=== PATIENT | male | born 1960 | race Caucasian/White ===

== ENCOUNTER 2017-10-21 12:32 | Observation (INO) | payer BC ==
[2017-10-21] MEDS: BELLADONNA/PHENOBARBITAL TAB PO (13:33)
[2017-10-21] MEDS: ONDANSETRON 4 MG INJ IV ×3 (13:33→16:40)
[2017-10-21] MEDS: FAMOTIDINE 20 MG INJ IV (13:33)
[2017-10-21] MEDS: SOD CHLORIDE 0.9% 1,000 ML IV ×3 (13:33→20:51)
[2017-10-21] MEDS: HYDROmorphONE 0.5 MG/0.5 ML SYG IV ×3 (13:33→16:41)
[2017-10-21] MEDS: LIDOCAINE/MYLANTA 40 ML BTL PO (13:33)
[2017-10-21] MEDS: KETOROLAC 30 MG INJ IV (13:43)
[2017-10-21] MEDS: LORAZEPAM 2 MG INJ IV (14:09)
[2017-10-21 15:12] LABS: ADD MAN DIFF? NO
[2017-10-21 15:13] LABS: WHITE BLOOD COUNT 18.7 10^3/ul (4.8-10.8)
[2017-10-21 15:13] LABS: BASOPHIL # 0.1 10^3/ul (0.0-0.1); BASOPHILS % 0.5 % (0.0-2.0); EOSINOPHILS # 0.2 10^3/ul (0.0-0.5); EOSINOPHILS % 1.2 % (0.0-7.0); HEMATOCRIT 50.1 % (42.0-52.0); HEMOGLOBIN 16.7 g/dl (14.0-18.0); LYMPHOCYTES # 2.3 10^3/ul (0.8-2.9); LYMPHOCYTES % 12.5 % (15.0-51.0); MEAN CORPUSCULAR HEMOGLOBIN 30.5 pg (29.0-33.0); MEAN CORPUSCULAR HGB CONC 33.3 g/dl (32.0-37.0); MEAN CORPUSCULAR VOLUME 91.6 fl (82.0-101.0); MEAN PLATELET VOLUME 11.8 fl (7.4-10.4); MONOCYTE # 1.2 10^3/ul (0.3-0.9); MONOCYTES % 6.2 % (0.0-11.0); NEUTROPHIL # 14.8 10^3/ul (1.6-7.5); NEUTROPHILS % 79.2 % (39.0-77.0); PLATELET COUNT 292 10^3/UL (140-415); RED BLOOD COUNT 5.47 10^6/ul (4.70-6.10); RED CELL DISTRIBUTION WIDTH 13.1 % (11.5-14.5)
[2017-10-21 15:18] LABS: INR 0.87; PARTIAL THROMBOPLASTIN TIME 28.4 Sec (25.0-35.0); PROTIME 11.9 Sec (11.9-14.9); PT RATIO 0.9
[2017-10-21 15:21] LABS: ALANINE AMINOTRANSFERASE 21 IU/L (13-69); ALBUMIN/GLOBULIN RATIO 1.61; ALKALINE PHOSPHATASE 120 IU/L (42-121); AMYLASE 101 U/L (11-123); ANION GAP 18 (8-16); ASPARTATE AMINO TRANSFERASE 30 IU/L (15-46); BILIRUBIN,INDIRECT 0.4 mg/dl (0-1.1); BILIRUBIN,TOTAL 0.4 mg/dl (0.2-1.3); BLOOD UREA NITROGEN 13 mg/dl (7-20); CALCIUM 10.1 mg/dl (8.4-10.2); CARBON DIOXIDE 30 mmol/L (21-31); CHLORIDE 106 mmol/L (97-110); CREATININE 0.83 mg/dl (0.61-1.24); GLUCOSE 132 mg/dl (70-220); LIPASE 214 U/L (23-300); POTASSIUM 4.9 mmol/L (3.5-5.1); SODIUM 149 mmol/L (135-144); TOTAL PROTEIN 8.1 g/dl (6.1-8.1)
[2017-10-21 15:45] LABS: TROPONIN-I < 0.012 ng/ml (0.00-0.12)
[2017-10-21] MEDS ORDERED: ONDANSETRON 4 MG INJ IV ×2 (20:00)
[2017-10-21] MEDS ORDERED: ACETAMINOPHEN 325 MG TAB PO (20:00)
[2017-10-21] MEDS ORDERED: NACL 0.9% 3 ML SYG IV (20:00)
[2017-10-21] MEDS ORDERED: LABETALOL HCL 20MG INJ IV (20:00)
[2017-10-21] MEDS: IOHEXOL 300MG/ML 150 ML BTL (20:21)
[2017-10-21] MEDS: SOD CHLORIDE 0.9% 100 ML (20:21)
[2017-10-21] MEDS: PANTOPRAZOLE 40 MG INJ IV (20:51)
[2017-10-21] MEDS: METOCLOPRAMIDE 10 MG INJ IV (20:51)
[2017-10-21] MEDS: DEXTROSE 5%-0.45% NACL 1,000 ML IV (22:34)
[2017-10-22] MEDS: METOCLOPRAMIDE 10 MG INJ IV ×3 (00:36→12:40)
[2017-10-22] MEDS: hydrALAzine 20 MG INJ IV (02:44)
[2017-10-22] MEDS: DEXTROSE 5%-0.45% NACL 1,000 ML IV ×2 (05:38→08:45)
[2017-10-22] MEDS: PANTOPRAZOLE 40 MG INJ IV (05:42)
[2017-10-22 06:40] LABS: ADD MAN DIFF? NO
[2017-10-22 06:46] LABS: BASOPHILS % 0.3 % (0.0-2.0); HEMATOCRIT 43.3 % (42.0-52.0); HEMOGLOBIN 15.1 g/dl (14.0-18.0); LYMPHOCYTES # 1.3 10^3/ul (0.8-2.9); LYMPHOCYTES % 10.2 % (15.0-51.0); MEAN CORPUSCULAR HEMOGLOBIN 31.3 pg (29.0-33.0); MEAN CORPUSCULAR HGB CONC 34.9 g/dl (32.0-37.0); MEAN CORPUSCULAR VOLUME 89.6 fl (82.0-101.0); MEAN PLATELET VOLUME 11.7 fl (7.4-10.4); MONOCYTE # 0.9 10^3/ul (0.3-0.9); MONOCYTES % 6.9 % (0.0-11.0); NEUTROPHIL # 10.7 10^3/ul (1.6-7.5); NEUTROPHILS % 82.3 % (39.0-77.0); PLATELET COUNT 240 10^3/UL (140-415); RED BLOOD COUNT 4.83 10^6/ul (4.70-6.10); RED CELL DISTRIBUTION WIDTH 13.1 % (11.5-14.5)
[2017-10-22 07:06] LABS: ANION GAP 17 (8-16); BLOOD UREA NITROGEN 10 mg/dl (7-20); CALCIUM 8.9 mg/dl (8.4-10.2); CARBON DIOXIDE 26 mmol/L (21-31); CHLORIDE 105 mmol/L (97-110); CREATININE 0.67 mg/dl (0.61-1.24); GLUCOSE 131 mg/dl (70-220); POTASSIUM 3.5 mmol/L (3.5-5.1); SODIUM 144 mmol/L (135-144)
== END 2017-10-22 15:23 | disposition home or self-care (01) ==
LOC: PP2 21:09 → E/R 12:32 → PP2 19:42
DX: K29.70 Gastritis, unspecified, without bleeding (principal)
CPT/HCPCS: 74177; 80048; 80053; 82150; 83690; 83735; 84484; 85025; 85610; 85730; 93005; 96374; 96375; 96376; 99285-25; G0378